=== PATIENT | female | born 1990 | race Two or more races ===

== ENCOUNTER 2025-08-28 17:35 | Emergency (ER) | payer MEDICAID, OTHER ==
[~2025-08-28] VITALS: Ht 172.7 cm; Wt 113.0 kg
[2025-08-28 18:50] VITALS: BP 134/83; TEMP 97.6
[2025-08-28 19:07] VITALS: PULSE 94; RESP 17; O2SAT 94
--- NOTE | 2025-08-28 19:17 | ED.PDOC ---
History of Present Illness HPI Comments This is a 35-year-old female who comes in with chief complaint of possible anxiety and hallucinations. The patient states that she was released from the [facility] [place] on 07/17. The patient remained there for approximately five days. She was admitted for suicidal ideation. After that t he patient was then discharged home here in [place]. She states that she lives with her four children ages 15, 13, 10 and five. There is no one else that lives in the house. She states that she started with some visual hallucinations on 08/22. The patient has been having anxiety but she denies any homicidal or suicidal ideations at this time. 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 History Family History Family History (Other): Bipolar disorder Social History Smoker: Cigarettes Alcohol: Denies ETOH Use Drugs: Denies Drug Use Lives In: Home Physical Exam General Appearance: Moderate Distress HEENT: Normal ENT Inspection, Pharynx Normal, TMs Normal Neck: Full Range of Motion, Non-Tender, Normal, Normal Inspection Respiratory: Chest Non-Tender, Lungs Clear, No Accessory Muscle Use, No Respiratory Distress, Normal Breath Sounds Cardiovascular: No Edema, No JVD, No Murmur, No Gallop, Normal Peripheral Pulses, Regular Rate/Rhythm Breast Exam: Deferred Gastrointestinal: No Organomegaly, Non Tender, No Pulsatile Mass, Normal Bowel Sounds, Soft Genitalia: Deferred Pelvic: Deferred Rectal: Deferred Extremities: No calf tenderness, Normal capillary refill, No pedal edema Musculoskeletal : Apperance: Normal Neurologic: Alert, photography editor II-XII nml as Tested, No Motor Deficits, No Sensory Deficits, Other (Patient is having some anxiety and visual hallucinations) Cerebellar Function: Normal Reflexes: Normal Skin: Dry, Normal Color, Warm Lymphatic: No Adenopathy Was a procedure done? Was a procedure done?: No EKG EKG : Pulse Rate (adult): 92 [place]: Normal Cardiac Rhythm: NSR Block: None ST: Nonsp Differential Dx Considerations may include: Suicidal ideation, homicidal ideation, generalized weakness, anxiety X-Ray, Labs, Meds, VS Vital Signs Date Time Temp Pulse Resp B/P (MAP) Pulse Ox O2 Delivery O2 Flow Rate FiO2 08/28/25 20:00 88 16 99 Room Air* 0 21 08/28/25 19:17 92 08/28/25 19:07 94 17 94 Room Air* 0 21 08/28/25 18:50 97.6 94 17 134/83 (100) 94 97.6 08/28/25 18:00 92 08/28/25 17:43 97.6 82 16 124/76 99 97.6 Lab Test 08/28/25 19:16 08/28/25 18:54 Range/Units Urine Test Negative Negative Urine Opiates Screen Neg NEGATIVE Urine Fentanyl Screen Neg NEGATIVE Urine Barbiturates Screen Neg NEGATIVE Urine Phencyclidine Screen Neg NEGATIVE Urine Amphetamines Screen Neg NEGATIVE Urine Benzodiazepines Screen Neg NEGATIVE Urine Cocaine Screen Neg NEGATIVE Urine Cannabinoids Screen Neg NEGATIVE White Blood Count 8.7 4.4-10.8 10^3/uL Red Blood Count 4.18 4.0-5.20 10^6/uL Hemoglobin 12.3 12.2-16.2 g/dL Hematocrit 35.8 L 36.0-46.0 % Mean Corpuscular Volume 85.7 80.0-100.0 fL Mean Corpuscular Hemoglobin 29.5 28.0-32.0 pg Mean Corpuscular Hemoglobin Concent 34.4 32.0-36.0 g/dL Red Cell Distribution Width 13.2 11.8-14.3 % Platelet Count 273 140-450 10^3/uL Mean Platelet Volume 9.0 6.9-10.8 fL Neutrophils (%) (Auto) 65.0 37.0-80.0 % Lymphocytes (%) (Auto) 26.5 10.0-50.0 % Monocytes (%) (Auto) 6.6 0.0-12.0 % Eosinophils (%) (Auto) 1.0 0.0-7.0 % Basophils (%) (Auto) 0.9 0.0-2.0 % Neutrophils # (Auto) 5.7 1.6-8.6 10 ^3/uL Lymphocytes # (Auto) 2.3 0.4-5.4 10 ^3/uL Monocytes # (Auto) 0.6 0-1.3 10 ^3/uL Eosinophils # (Auto) 0.1 0-0.8 10 ^3/uL Basophils # (Auto) 0.1 0-0.2 10 ^3/uL Nucleated Red Blood Cells 0.0 % Sodium Level 140 136-145 mmol/L Potassium Level 3.4 L 3.5-5.1 mmol/L Chloride Level 104 98-107 mmol/L Carbon Dioxide Level 22 20-31 mmol/L Anion Gap 14 5-15 Blood Urea Nitrogen 9 9-23 mg/dL Creatinine 0.69 0.550-1.02 mg/dL Glomerular Filtration Rate Calc 116 >90 mL/min BUN/Creatinine Ratio 13.0 10.0-20.0 Serum Glucose 143 H 74-106 mg/dL Calcium Level 8.6 L 8.7-10.4 mg/dL Plasma/Serum Blood Alcohol < 3.0 <10 mg/dL The patient's CBC is within normal limits The chemistry panel is within normal limits Abdomen the urine tox is negative The test is negative At this time the patient has been medically cleared A telemedicine consult has been ordered. Dry Time of 1ST Reevaluation: 19:17 Reevaluation 1ST: Unchanged Patient Education/Counseling: Diagnosis, Treatment, Prognosis Family Education/Counseling: No Family Present SEPSIS Sepsis Screen Date sepsis recognized/suspect: Aug 28, 2025 Time Sepsis recognized/suspect: 1750 Recent Procedure: No On Antibiotic Therapy: No Respiratory Rate >20: No Heart Rate >90: No Temp<36 C (96.8 F) or >38.3 C: No SBP <90 or MAP <65 mmHG: No New Acute Mental Status Change: No Is the patient on CPAP, BIPAP,: No Physician Orders Electrocardiogram With Magnet (08/28/25 18:48) Vital Signs Date Time Temp Pulse Resp B/P (MAP) Pulse Ox O2 Delivery O2 Flow Rate FiO2 08/28/25 20:00 88 16 99 Room Air* 0 21 08/28/25 19:17 92 08/28/25 19:07 94 17 94 Room Air* 0 21 08/28/25 18:50 97.6 94 17 134/83 (100) 94 97.6 08/28/25 18:00 92 08/28/25 17:43 97.6 82 16 124/76 99 97.6 Laboratory Tests Test 08/28/25 18:54 White Blood Count 8.7 10^3/uL (4.4-10.8) Departure 1 Departure Time of Disposition: 20:22 Impression: Primary Impression: Auditory hallucination Additional Impression: Psychosis Qualified Codes: F25.9 - Schizoaffective disorder, unspecified Disposition: 30 STILL A PATIENT Condition: Fair Critical Care Note Critical Care Time?: No Stability Stability form required: No Heart Score Heart Score: Heart Score Response (Comments) Value History N/A 0 EKG N/A 0 Age N/A 0 Risk Factors N/A 0 Troponin N/A 0 Total 0 PRAVEEN LANG MD Aug 28, 2025 19:17
[2025-08-28 19:22] LABS: Hematocrit 35.8 % (36.0-46.0); Hemoglobin 12.3 g/dL (12.2-16.2); Mean Corpuscular Hemoglobin 29.5 pg (28.0-32.0); Mean Corpuscular Volume 85.7 fL (80.0-100.0); Nucleated Red Blood Cells % 0.0 %
[2025-08-28 19:38] LABS: Chloride 104 mmol/L (98-107); Sodium 140 mmol/L (136-145)
[2025-08-28 19:39] LABS: Anion Gap 14 (5-15); Carbon Dioxide 22 mmol/L (20-31)
[2025-08-28 19:44] LABS: BUN/Creatinine Ratio 13.0 (10.0-20.0); Blood Urea Nitrogen 9 mg/dL (9-23)
[2025-08-28 20:00] VITALS: PULSE 88; RESP 16; O2SAT 99
[2025-08-28 20:02] LABS: Calcium 8.6 mg/dL (8.7-10.4); Glucose 143 mg/dL (74-106); Potassium 3.4 mmol/L (3.5-5.1)
[2025-08-28 20:03] LABS: Amphetamine Screen, Urine Neg (NEGATIVE); Barbiturate Scree,Urine Neg (NEGATIVE); Benzodiazephine Screen, Urine Neg (NEGATIVE); Cannabinoid Screen, Urine Neg (NEGATIVE); Cocaine Screen, Urine Neg (NEGATIVE); Opiate Scree,Urine Neg (NEGATIVE); Phencyclidine Screen, Urine Neg (NEGATIVE)
--- NOTE | 2025-08-29 02:23 | DVHINCON2 ---
Date of Service if different f: Aug 29, 2025 Time of Service: 02:21 Consult Consult Note PSYCHIATRY ED NEW CONSULT HPI: 35 yo pt with PPH of depression and anxiety presents to ED for safety, psychiatric stabilization, and possible med initiation/optimization in setting of anxiety, paranoia, and VH. Psychiatry consulted for safety evaluation and recommendations in context of current presentation Pt reports over past week to month experiencing ongoing anxiety to point of feeling paranoid, disorientated, confusion, seeing "weird scary things", NC/NT VH, some thought blocking, restlessness, poor sleep,etc. Pt poor historian with limited J/I and appears to have some thought disorder Denies SI/HI/AH/catatonic/manic/major depressive symptoms. Denies acute psychosocial stressors Does have active outpt MH services established at this time (therapy and psychiatry services) Currently rx'd Lybalvi 5-10 mg qhs, hydroxyzine 25 mg prn, trazodone 50 mg qhs, overall med compliant EKATERINA hx: Denies ETOH, THC or IDU prior to admission although some hx of ETOH dependency, sober for past year SH: Single, 4 children whom she resides with, unemployed/stay at home/SSI, some support system noted (immediate family). Unknown trauma hx FH: Denies FH of psych hospitalizations, suicide attempts, or completed suicides PMH: No acute medical/chronic pain issues, hx of seizures/TBI, HIV/hep C, cardiac dz, or recent head injuries, NKDA Denies hx of SIB/SA/PSG although recent admission on 06/2025 at [facility] psych unit for similar symptoms. Denies history of violence, aggression, or assa ultive behaviors. Denies any legal problems. Does not have access to firearms. No acute safety concerns noted during encounter MSE: General Appearance/Behavior: Alert/awake; appears stated age, overweight, fair grooming/hygiene; piercing/tattoos noted, calm/polite and cooperative, fair eye contact, bit confused/disorientation noted Speech: some disorganized speech noted Thought Process: TB/confused/bit impoverished Thought Content: Abnormal Thoughts/Perceptions: denies dissociative symptoms Homicidality / Violent Thoughts: adamantly denies HI Suicidality: adamantly denies SI Hallucinations: +VH Delusions: +PI Obsessions /compulsions: None Judgment/Insight: marginal to limited Mood & Affect: "anxious" with mood-congruent, somewhat confused/tired Orientation: oriented x 3 Attention/Concentration: appears intact Cognition: grossly intact Assessment: 35 yo pt with PPH of depression and anxiety presents to ED for safety, psychiatric stabilization, and possible med initiation/optimization in setting of anxiety, paranoia, and VH Pt reports over past week to month experiencing ongoing anxiety to point of feeling paranoid, disorientated, confusion, seeing "weird scary things", NC/NT VH, some thought blocking, restlessness, poor sleep,etc. Pt poor historian with limited J/I and appears to have some thought disorder Does not presently show any signs of immediate danger to self/others or GD that would necessitate 5150 or involuntary psych admission. However offered voluntary psych hospitalization but pt declined. Also declined further ED observation/reevaluation. No acute safety concerns noted. Acute suicide/violence risk appears nonexistent to relatively low Collateral reports from family member (cousin at bedside) also support that pt has not made any recent/ongoing suicidal statements and did not express any safety concerns Pts symptoms should be managed safely in an outpatient setting - currently does have psychiatrist/therapist out in community and plans to follow-up over next several weeks for ongoing med management/psychotx Currently Lybalvi 5-10 mg qhs, hydroxyzine 25 mg prn, trazodone 50 mg qhs. No indication to change current med regimen although may benefit from PRN Quetiapine 100 mg qhs to address paranoia/anxiety symptoms exacerbated prior to this admission. Primary Diagnosis: Psychotic disorder unspecified Plan: Does not warrant involuntary inpatient psychiatric hospitalization or 5150 hold No acute safety concerns Pt can be safely discharged back to current residence Resume above current outpatient psychotropics - med compliance emphasized Recommend 14 day rx for quetiapine 100 mg qhs prn anxiety/paranoia/AVH Risks/benefits/alternative treatments discussed, informed consent provided by pt Supportive tx provided, discussed safety plan with pt Encouraged mindfulness techniques (reading, walking, meditation, journaling, exercise, deep breathing) during times of stress Pt plans to f/u with outpatient MH providers over next several weeks for ongoing therapy/med management Encouraged f/u with PCP for routine medical/preventive care Instructed pt to call/text [phone] or return to ED if MH symptoms worsen or new onset SI/HI upon discharge low threshold for inpt psych admission if pt returns with similar CC/presentation Family (cousin at bedside) agrees to watch patient over next couple days, safeguard primary residence, and to arrange any appropriate MH f/u appointments Pt verbalized understanding and is receptive to above tx plan This case was discussed with ED nurse/provider and all parties in agreement with above tx plan Vincent Mcgovern MD Plan discussed with: Patient VINCENT MCGOVERN MD Aug 29, 2025 02:23
[2025-08-29] MEDS: ACETAMINOPHEN 325 MG TAB PO ONE (04:04)
[2025-08-29] MEDS ORDERED: QUET50TA PO (04:37)
--- NOTE | 2025-08-30 07:01 | ECG ---
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
== END 2025-08-29 04:07 | disposition home or self-care (01) ==
LOC: ER 17:35
DX: R44.0 Auditory hallucinations (principal); R44.1 Visual hallucinations; F41.9 Anxiety disorder, unspecified; F32.A Depression, unspecified; F17.210 Nicotine dependence, cigarettes, uncomplicated; Z71.82 Exercise counseling; Z79.899 Other long term (current) drug therapy; Z90.49 Acquired absence of other specified parts of digestive tract
CPT/HCPCS: 36415; 80048; 80307; 80320; 81025; 85025